=== PATIENT | female | born 1940 | race Caucasian/White ===

== ENCOUNTER 2022-12-23 05:31 | Day surgery (SDC) | payer OTHER ==
[2022-12-21 14:10] VITALS: BMI 22.6
[~2022-12-23 05:31] MED LIST: BUPIVACAINE HCL/PF 0.75% 10 ML VIAL NR ONE; LIDOCAINE HCL 1% PRESERVATIVE FREE - 30ML VIAL IJ ONE
[2022-12-23] MEDS ORDERED: LIDOCAINE HCL/PF 2% SDV 5ML VIAL ONE (07:34)
[2022-12-23] MEDS ORDERED: BUPIVACAINE HCL/PF 0.75% 10 ML VIAL ONE (07:34)
[2022-12-23] MEDS ORDERED: ACETAMINOPHEN 500 MG TABLET (FP) PO PRN (14:58)
== END 2022-12-23 10:28 | disposition home or self-care (01) ==
LOC: JASU-SURG 05:31
PROVIDERS: ATTEND Pain Medicine Pain Medicine
DX: Z53.8 Procedure and treatment not carried out for other reasons (principal)

== ENCOUNTER 2023-01-06 05:05 | Day surgery (SDC) | payer OTHER ==
[2022-12-30 16:11] VITALS: BMI 22.6
[2023-01-06] MEDS ORDERED: LIDOCAINE HCL/PF 1% SDV 5ML VIAL ONE (07:08)
[2023-01-06] MEDS ORDERED: BUPIVACAINE HCL/PF 0.75% 10 ML VIAL ONE (07:08)
[2023-01-06] MEDS ORDERED: BUPIVACAINE HCL/PF 0.75% 10 ML VIAL NR ONE ×2 (07:42→10:19)
[2023-01-06] MEDS ORDERED: LIDOCAINE 1% P/F 10 MG/ML VIAL INF ONE ×2 (07:42→10:19)
[2023-01-06] MEDS ORDERED: ACETAMINOPHEN 500 MG TABLET (FP) PO PRN (08:00)
[2023-01-06 15:14] VITALS: RESP 18
[2023-01-06 15:24] VITALS: BP 156/73; PULSE 82; TEMP 98
== END 2023-01-06 13:20 | disposition home or self-care (01) ==
LOC: JASU-SURG 05:05
PROVIDERS: ATTEND Pain Medicine Pain Medicine
PROC: 3E0T33Z Introduction of Anti-inflammatory into Peripheral Nerves and Plexi, Percutaneous Approach (ICD-10-PCS; 2023-01-06)
PROC: 3E0T3BZ Introduction of Anesthetic Agent into Peripheral Nerves and Plexi, Percutaneous Approach (ICD-10-PCS; principal; 2023-01-06 11:00)
DX: M47.816 Spondylosis without myelopathy or radiculopathy, lumbar region (principal)
CPT/HCPCS: 76000-TC-FY

== ENCOUNTER 2023-02-07 04:19 | Day surgery (SDC) | payer OTHER ==
[2023-02-06 14:43] VITALS: BMI 23.6
[2023-02-07] MEDS ORDERED: DEXAMETHASONE SOD PHOSPHATE 10 MG/1 ML VIAL IM ONE (11:52)
[2023-02-07] MEDS ORDERED: LIDOCAINE HCL 1% PRESERVATIVE FREE - 30ML VIAL IJ ONE (11:52)
[2023-02-07] MEDS ORDERED: IOHEXOL 180 MG/1 ML ML IJ ONE (11:53)
[2023-02-07 14:22] VITALS: BP 136/78; PULSE 83; RESP 18; TEMP 98.7
== END 2023-02-07 12:40 | disposition home or self-care (01) ==
LOC: JASU-SURG 04:19 → EDBD 04:19 → JASU-SURG 12:40
PROVIDERS: ATTEND Pain Medicine Pain Medicine
PROC: 3E0R3BZ Introduction of Anesthetic Agent into Spinal Canal, Percutaneous Approach (ICD-10-PCS; 2023-02-07)
PROC: 3E0R33Z Introduction of Anti-inflammatory into Spinal Canal, Percutaneous Approach (ICD-10-PCS; principal; 2023-02-07 12:15)
DX: M48.061 Spinal stenosis, lumbar region without neurogenic claudication (principal); M54.16 Radiculopathy, lumbar region
CPT/HCPCS: 76000-TC-FY; J1100

== ENCOUNTER 2023-08-01 04:13 | Day surgery (SDC) | payer OTHER ==
[2023-07-26 15:18] VITALS: BMI 23.6
[2023-08-01] MEDS: LIDOCAINE 1% P/F 10 MG/ML VIAL INF ONE (11:38)
[2023-08-01] MEDS ORDERED: ACETAMINOPHEN 500 MG TABLET (FP) PO PRN (11:39)
[2023-08-01] MEDS: BUPIVACAINE HCL/PF 0.75% 10 ML VIAL NR ONE (11:41)
[2023-08-01 12:31] VITALS: BP 149/77; PULSE 104; RESP 18; TEMP 97.8
== END 2023-08-01 12:19 | disposition home or self-care (01) ==
LOC: JASU-SURG 04:13
PROVIDERS: ATTEND Pain Medicine Pain Medicine
PROC: 3E0T3BZ Introduction of Anesthetic Agent into Peripheral Nerves and Plexi, Percutaneous Approach (ICD-10-PCS; principal; 2023-08-01 10:15)
DX: M47.816 Spondylosis without myelopathy or radiculopathy, lumbar region (principal)
CPT/HCPCS: 76000-TC-FY